=== PATIENT | female | born 1935 | race Caucasian/White ===

== ENCOUNTER 2017-01-20 09:26 | Day surgery (SDC) | payer MEDICARE, OTHER ==
[~2017-01-20 09:26] MED LIST: Lactated Ringers 1,000 ML IV SCH
[2017-01-20] MEDS ORDERED: fentaNYL 100 MCG/2 ML SDV ONE (11:31)
[2017-01-20] MEDS ORDERED: Propofol 200 MG/20 ML SDV ONE (11:31)
--- NOTE | 2017-01-20 14:42 | OR ---
PREOPERATIVE DIAGNOSIS: History of polyps. POSTOPERATIVE DIAGNOSIS: Sigmoid diverticulosis. Otherwise normal exam. PROCEDURE PROPOSED: Total flexible colonoscopy. PROCEDURE DONE: Total flexible colonoscopy. INDICATION: This is a 81-year-old female who comes in for recommended colonoscopy due to history of polyps. She has been having evaluations about every 5 years. She denies any symptomatology. TECHNIQUE: The patient was brought to the endoscopy suite, placed in left lateral decubitus position. She was sedated with propofol per [employer]ED PROJECT ENGINEER. The flexible video colonoscope was then passed transanally and under visualization advanced to the cecum. Examination revealed a normal ascending, transverse, and descending colon. The sigmoid colon revealed moderate diverticulosis and the rectal mucosa was normal. There are no polyps, colitis, or other abnormalities. The scope was then withdrawn. The patient tolerated the procedure well. IMPRESSION: 1. Sigmoid diverticulosis. Otherwise normal exam. 2. History of prior polyps. PLAN: It at her age, now we feel that she needs no future examinations. SCM: 01/20/2017 12:43:24 MODL: 01/20/2017 14:31:50 /[id number]
[2017-01-20 14:45] VITALS: BP 108/58
== END 2017-01-20 14:00 | disposition home or self-care (01) ==
LOC: VM.SDS 09:26
PROVIDERS: ATTEND Surgery
DX: Z12.11 Encounter for screening for malignant neoplasm of colon (principal); Z86.010 Personal history of colon polyps; K57.30 Diverticulosis of large intestine without perforation or abscess without bleeding; Z79.82 Long term (current) use of aspirin; Z79.899 Other long term (current) drug therapy; Z88.0 Allergy status to penicillin; Z88.1 Allergy status to other antibiotic agents; E78.5 Hyperlipidemia, unspecified; F41.9 Anxiety disorder, unspecified; J45.20 Mild intermittent asthma, uncomplicated; F32.9 Major depressive disorder, single episode, unspecified; I25.10 Atherosclerotic heart disease of native coronary artery without angina pectoris; Z90.710 Acquired absence of both cervix and uterus; Z96.653 Presence of artificial knee joint, bilateral; Z98.890 Other specified postprocedural states
CPT/HCPCS: G0105; J2704; J3010; J7120; 00810

== ENCOUNTER 2018-03-06 13:39 | Emergency (ER) | payer MEDICARE, OTHER ==
[2018-03-06 13:49] VITALS: BP 102/62
[2018-03-06] MEDS ORDERED: Lidocaine 1% with EPINEPHrine 1:100,000 20 ML MDV INFILT ONE (13:50)
--- NOTE | 2018-03-06 13:59 | EDM.PDOC ---
ED HPI GENERAL MEDICAL PROBLEM - General Chief Complaint: Lower Extremity Injury/Pain Stated Complaint: ER Time Seen by Provider: 03/06/18 13:40 Source of Information: Reports: Patient History Limitations: Reports: No Limitations - History of Present Illness INITIAL COMMENTS - FREE TEXT/NARRATIVE: Pt. presents to ER with complaints of bleeding from a vericose vein. Pt. was doing dishes and a small knife fell, causing a small puncture wound to her R lower anterior leg. She states that she immediately began experiencing heavy bleeding from the area. EMS was summoned. A pressure dressing was applied to the area and pt. was transported to the ER. Onset: Today Location: Reports: Lower Extremity, Right - Related Data Allergies Allergy/AdvReac Type Severity Reaction Status Date / Time methotrexate Allergy Nausea and Verified 03/06/18 13:50 Vomiting Penicillins Allergy Rash Verified 03/06/18 13:50 Home Meds: Home Meds Acetaminophen [Tylenol Extra Strength] 500 - 1,000 mg PO Q4H PRN 01/02/17 [ History] Albuterol [IJD: Albuterol HFA] 2 puff PO Q4H PRN 01/02/17 [History] Aspirin [Halfprin] 81 mg PO DAILY 01/02/17 [History] Clobetasol Propionate [Temovate] 1 applic TOP BID 01/02/17 [History] ClonazePAM [KlonoPIN] 0.5 mg PO BEDTIME 01/02/17 [History] DULoxetine [Cymbalta] 1 cap PO BID 01/02/17 [History] Dextran/Hypromellose/Glycerin [Genteal Tears 0.1%-0.2%-0.3%] 1 drop EYEBOTH ASDIRECTED 01/02/17 [History] Estrogens, Conjugated [Premarin Vaginal Crm] 1 gram VAG Q3D 01/02/17 [History] Gabapentin [Neurontin] 1 cap PO TID 01/02/17 [History] Levothyroxine 25 mcg PO QAM 01/02/17 [History] Pravastatin Sodium 1 tab PO DAILY 01/02/17 [History] Propylene Glycol/Peg 400 [Systane 0.3-0.4% Eye Drops] 1 drop EYERT Q4H 01/02/17 [History] Psyllium [Metamucil] 1 cap PO DAILY PRN 01/02/17 [History] Celecoxib [CeleBREX] 100 mg PO DAILY 03/06/18 [History] Fluticasone Propionate [Flovent HFA] 1 puff INH BID 03/06/18 [History] Magnesium Oxide 400 mg PO DAILY 03/06/18 [History] Past Medical History HEENT History: Reports: None Cardiovascular History: Reports: CAD, High Cholesterol, Other (See Below) Other Cardiovascular History: varicose veins Respiratory History: Reports: Asthma Gastrointestinal History: Reports: Colon Polyp, Diverticulosis, Other (See Below ) Other Gastrointestinal History: esophagitis Genitourinary History: Reports: None Musculoskeletal History: Reports: Other (See Below) Other Musculoskeletal History: capsulitis of foot, metatarsalgia, clawtow, ffot joint hypermobility, pesplanovalgus Neurological History: Reports: Neuropathy, Peripheral, Other (See Below) Other Neuro History: herpetic neuralgia Psychiatric History: Reports: Anxiety, Depression, Other (See Below) Other Psychiatric History: insomnia Endocrine/Metabolic History: Reports: Hypothyroidism, Osteopenia Hematologic History: Reports: None Immunologic History: Reports: None Oncologic (Cancer) History: Reports: None Dermatologic History: Reports: Psoriasis - Past Surgical History Head Surgeries/Procedures: Reports: None HEENT Surgical History: Reports: Cataract Surgery, Tonsillectomy Cardiovascular Surgical History: Reports: None GI Surgical History: Reports: Appendectomy, Cholecystectomy, Colonoscopy Female Surgical History: Reports: Hysterectomy Musculoskeletal Surgical History: Reports: Knee Replacement, Other (See Below) Other Musculoskeletal Surgeries/Procedures:: thumb sx Review of Systems - Review of Systems Review Of Systems: ROS reveals no pertinent complaints other than HPI. Musculoskeletal: Reports: Other ED EXAM, GENERAL - Physical Exam Exam: See Below General Appearance: Alert, WD/WN, No Apparent Distress Extremities: Normal Inspection, Normal Range of Motion, Non-Tender, No Pedal Edema, Normal Capillary Refill, Other (small sub centimeter puncture wound noted to R anterior lower leg, briskly bleeding when no pressure is applied.) ED TRAUMA EXTREMITY PROCEDURES - Laceration/Wound Repair Right Anterior Leg Lac/Wound Length In cm: 0.5 Appearance: Superficial Distal NVT: Neuro & Vascular Intact Anesthetic Type: Local Local Anesthesia - Lidocaine (Xylocaine): 1% with EPI Local Anesthetic Volume: 3cc Skin Prep: Chlorhexidine (Hibiciens), Saline Exploration/Debridement/Repair: Wound Explored Closed With: Sutures Suture Size: other (5-0) Suture Type: Nylon Progress/Comments: Very superficial laceration/puncture, briskly bleeding. The area was injected with 1% lidocaine with epinephrine, for anesthetic as well as for vasoconstriction. Bleeding continued but slowed after injection. a single 5-0 nylon suture was placed. Excellent hemostasis was achieved. Surgicel was placed over the area in the event that the laceration begins bleeding again. 4x4s were placed over this and secured with coban. Course - Vital Signs Last Recorded V/S: Last Vital Signs Temp 36.3 C 03/06/18 13:40 Pulse 82 03/06/18 13:40 Resp 18 03/06/18 13:40 BP 102/62 03/06/18 13:40 Pulse Ox 95 03/06/18 13:40 - Orders/Labs/Meds Meds: Medications Discontinued Medications Generic Name Dose Route Start Last Admin Trade Name Kamleshq PRN Reason Stop Dose Admin Lidocaine/Epinephrine 20 ml 03/06/18 13:50 03/06/18 14:01 Xylocaine 1% With Epinephrine 1:100,000 INFILT 03/06/18 13:51 20 ml ONETIME ONE Administration Departure - Departure Time of Disposition: 14:25 Disposition: Home, Self-Care 01 Condition: Good Clinical Impression: Laceration, Bleeding from varicose veins of right lower extremity - Discharge Information Instructions: Bleeding Varicose Veins Referrals: Irasema Matute DO [Primary Care Provider] - Forms: ED Department Discharge Additional Instructions: Keep dressing on for 48 hours. Suture out in 10 days. Return to ER if continued bleeding from the area.
== END 2018-03-06 14:25 | disposition home or self-care (01) ==
LOC: VM.ED 13:39
DX: S81.811A Laceration without foreign body, right lower leg, initial encounter (principal); I83.91 Asymptomatic varicose veins of right lower extremity; E03.9 Hypothyroidism, unspecified; Z88.0 Allergy status to penicillin; Z88.8 Allergy status to other drugs, medicaments and biological substances; Z79.82 Long term (current) use of aspirin; Z79.899 Other long term (current) drug therapy; W26.0XXA Contact with knife, initial encounter
CPT/HCPCS: 12001; 99283

== ENCOUNTER 2020-08-02 12:56 | Day surgery (SDC) | payer MEDICARE, OTHER ==
[2020-08-02] MEDS ORDERED: Propofol 200 MG/20 ML SDV ONE ×2 (13:10→15:08)
[2020-08-02 16:02] VITALS: BP 139/68; PULSE 63
--- NOTE | 2020-08-03 11:15 | OR ---
DATE OF SURGERY: 08/02/2020. REFERRING PROVIDER: Irasema Matute DO PRE-OPERATIVE DIAGNOSES: Chronic diarrhea for past several months. This was accompanied with stool urgency and some stool incontinence. The patient reports 5 to 10 loose stools per day along with stomach cramps. She denies any bloody or dark black-colored stools. No nausea or vomiting. Symptoms not improved with Imodium or Bentyl. POST-OPERATIVE DIAGNOSES: 1. Two small polyps removed using cold forceps. a. 2 mm polyp at 120 cm. b. 4 mm polyp at 60 cm. 2. Moderate diverticulosis, diffuse. 3. Otherwise, normal-appearing colon and normal-appearing distal ileum. Random biopsies taken from each area. PROCEDURE: Colonoscopy with polypectomy x2 using cold forceps. Random biopsies also taken from distal ilium and randomly throughout the colon in each segment. SURGEON: Grabiel Castañeda M.D. ANESTHESIA: Monitored anesthesia care. BOWEL PREP: Good. Julieth is an 85-year-old female who was brought to the endoscopy suite after discussing risks and benefits of the procedure. Informed consent was obtained for conscious sedation and colonoscopy with or without biopsy and/or polypectomy. We also discussed possibility of missed lesions. Pre-procedure exam was unremarkable. IV, oxygen, and monitors were placed. The patient was placed in the left lateral decubitus position. Sedation was administered and a digital rectal exam was performed and unremarkable. Colonoscope was passed into the rectum and slowly advanced all the way to the cecum. Cecum was viewed and photographed. Ileocecal valve was intubated and distal ileum was normal in appearance. Cold biopsy x2 bites taken randomly. The colonoscope was slowly withdrawn and the mucosa was closed observed in a direct circumferential manner. The ascending colon revealed 2 mm polyp at 120 cm from the anal verge. This was removed using cold forceps. The transverse colon was unremarkable. The descending colon revealed 4 mm polyp at 60 cm, removed using cold forceps. The sigmoid colon was unremarkable. The colon was remarkable for some moderate diffuse diverticulosis in each segment. Retroflexion was performed and rectal mucosa was unremarkable. Scope was removed. The patient tolerated the procedure well. The patient was monitored until that baseline status. Discharge instructions were reviewed and the patient was discharged in good condition. COMPLICATIONS: None. TOTAL TIME: 25 minutes. ESTIMATED BLOOD LOSS: 1 to 2 mL. RECOMMENDATIONS/FOLLOW-UP: We will await results of path report to determine ideal followup interval. We will have the patient hold her low-dose aspirin for 3 days to limit any chance of bleeding. I would like to kindly thank Irasema Matute for this referral. DMB: 08/02/2020 15:46:19 MODL: 08/02/2020 17:49:17 /[id number]
== END 2020-08-02 16:30 | disposition home or self-care (01) ==
LOC: VM.SDS 12:56
PROVIDERS: ATTEND Family Medicine
DX: D12.6 Benign neoplasm of colon, unspecified (principal); K63.89 Other specified diseases of intestine; K57.30 Diverticulosis of large intestine without perforation or abscess without bleeding; K52.9 Noninfective gastroenteritis and colitis, unspecified; F41.9 Anxiety disorder, unspecified; E78.5 Hyperlipidemia, unspecified; J45.20 Mild intermittent asthma, uncomplicated; Z01.812 Encounter for preprocedural laboratory examination; Z20.828 Contact with and (suspected) exposure to other viral communicable diseases; Z79.899 Other long term (current) drug therapy; Z88.0 Allergy status to penicillin; Z88.1 Allergy status to other antibiotic agents; Z88.8 Allergy status to other drugs, medicaments and biological substances
CPT/HCPCS: 00811; 45380; J2704; J7120; U0002; 88305

== ENCOUNTER 2022-06-02 13:19 | Emergency (ER) | payer MEDICARE, OTHER ==
[2022-06-02 14:07] VITALS: BP 108/73; PULSE 73
[2022-06-02 14:24] LABS: CHLORIDE,CL 101 mmol/L (98-107); SODIUM,NA 137 mmol/L (136-145)
[2022-06-02 14:25] LABS: ANION GAP 12.9 mmol/L (5-15); ESTIMATED GFR 73 mL/min (>=60)
== END 2022-06-02 15:02 | disposition home or self-care (01) ==
LOC: VM.ED 13:19
DX: G89.29 Other chronic pain (principal); M54.50 Low back pain, unspecified; R53.83 Other fatigue; I25.10 Atherosclerotic heart disease of native coronary artery without angina pectoris; E78.00 Pure hypercholesterolemia, unspecified; J45.909 Unspecified asthma, uncomplicated; M19.90 Unspecified osteoarthritis, unspecified site; E03.9 Hypothyroidism, unspecified; Z88.0 Allergy status to penicillin; Z88.1 Allergy status to other antibiotic agents; Z88.8 Allergy status to other drugs, medicaments and biological substances; Z79.82 Long term (current) use of aspirin; Z79.899 Other long term (current) drug therapy
CPT/HCPCS: 36415; 80048; 85025; 99283; 99284

== ENCOUNTER 2022-12-01 11:44 | Emergency (ER) | payer MEDICARE, OTHER ==
[2022-12-01 11:51] VITALS: BP 132/78; PULSE 79
== END 2022-12-01 13:09 | disposition home or self-care (01) ==
LOC: VM.ED 11:44
DX: S06.0X0A Concussion without loss of consciousness, initial encounter (principal); S00.03XA Contusion of scalp, initial encounter; M54.50 Low back pain, unspecified; I25.10 Atherosclerotic heart disease of native coronary artery without angina pectoris; E78.00 Pure hypercholesterolemia, unspecified; J45.909 Unspecified asthma, uncomplicated; M19.90 Unspecified osteoarthritis, unspecified site; E03.9 Hypothyroidism, unspecified; Z88.0 Allergy status to penicillin; Z88.1 Allergy status to other antibiotic agents; Z88.8 Allergy status to other drugs, medicaments and biological substances; Z79.82 Long term (current) use of aspirin; Z79.899 Other long term (current) drug therapy; W18.30XA Fall on same level, unspecified, initial encounter; Y92.009 Unspecified place in unspecified non-institutional (private) residence as the place of occurrence of the external cause
CPT/HCPCS: 70450; 72100; 99284

== ENCOUNTER 2023-04-18 10:10 | Emergency (ER) | payer MEDICARE, OTHER ==
[2023-04-18] MEDS ORDERED: methylPREDNISolone Sodium Succinate 125 MG/2 ML SDV IVPUSH ONE (10:36)
[2023-04-18] MEDS ORDERED: ceFAZolin 1 GM Vial IVPUSH ONE (10:36)
[2023-04-18 12:17] VITALS: BP 118/60; PULSE 70
== END 2023-04-18 11:05 | disposition home or self-care (01) ==
LOC: VM.ED 10:10
DX: L03.114 Cellulitis of left upper limb (principal); E78.00 Pure hypercholesterolemia, unspecified; I25.10 Atherosclerotic heart disease of native coronary artery without angina pectoris; J45.909 Unspecified asthma, uncomplicated; E03.9 Hypothyroidism, unspecified; Z79.899 Other long term (current) drug therapy; Z79.82 Long term (current) use of aspirin; Z88.0 Allergy status to penicillin; Z88.1 Allergy status to other antibiotic agents; Z88.8 Allergy status to other drugs, medicaments and biological substances
CPT/HCPCS: 96374; 96375; 99283; J0690; J2930

== ENCOUNTER 2023-12-22 18:21 | Emergency (ER) | payer MEDICARE, OTHER ==
[2023-12-22] MEDS: Sodium Chloride 0.9% 1,000 ML IV ONE (18:59)
[2023-12-22 19:00] LABS: BASOPHILS PERCENT AUTO 0.6 % (0.2-1.2); EOSINOPHILS ABSOLUTE AUTO 0.1 x10^3/uL (0.0-0.5); EOSINOPHILS PERCENT AUTO 1.9 % (0.0-4.0); HEMATOCRIT 41.3 % (33.0-47.0); HEMOGLOBIN 14.5 g/dL (12.0-16.0); IMMATURE GRAN ABSOLUTE AUTO 0.01 x10^3/uL (0.00-0.07); LYMPHOCYTES ABSOLUTE AUTO 1.4 x10^3/uL (1.0-4.8); LYMPHOCYTES PERCENT AUTO 27.8 % (25.0-50.0); MEAN CORPUSCULAR HEMOGLOBIN 34.4 pg (26.0-32.0); MEAN CORPUSCULAR HGB CONC 35.1 g/dL (32.0-36.0); MEAN CORPUSCULAR VOLUME 98.1 fL (78.0-93.0); MONOCYTES ABSOLUTE AUTO 0.7 x10^3/uL (0.0-0.8); MONOCYTES PERCENT AUTO 13.5 % (2.0-11.0); NEUTROPHILS ABSOLUTE AUTO 2.9 x10^3/uL (1.8-7.7); PLATELET COUNT,PLT 233 x10^3/uL (130-400); RED BLOOD CELL COUNT 4.21 x10^6/uL (4.00-5.50); WHITE BLOOD CELL COUNT,WBC 5.2 x10^3/uL (4.0-10.0)
[2023-12-22 19:25] LABS: A/G RATIO 1.08; ALANINE AMINOTRANSFERASE,ALT 24 U/L (14-59); ALKALINE PHOSPHATASE 121 U/L (46-116); ANION GAP 16.1 mmol/L (5-15); ASPARTATE AMNIOTRANSFERASE,AST 22 U/L (15-37); BILIRUBIN TOTAL 0.5 mg/dL (0.2-1.0); BLOOD UREA NITROGEN,BUN 16 mg/dL (7-18); CALCIUM 9.5 mg/dL (8.5-10.1); CARBON DIOXIDE,CO2 29 mmol/L (21-32); CHLORIDE,CL 101 mmol/L (98-107); CREATININE 0.7 mg/dL (0.55-1.02); ESTIMATED GFR 84 mL/min (>=60); GLUCOSE RANDOM 107 mg/dL (70-99); POTASSIUM,K 4.1 mmol/L (3.5-5.1); PROTEIN TOTAL,TP 7.7 g/dL (6.4-8.2); SODIUM,NA 142 mmol/L (136-145)
[2023-12-22] MEDS: Iopamidol 612 MG/ML 100 ML Bottle IVPUSH ONE (20:25)
[2023-12-22 20:57] LABS: APPEARANCE,URINE CLEAR (CLEAR); BILIRUBIN,URINE NEGATIVE (NEGATIVE); COLOR,URINE YELLOW (YELLOW); GLUCOSE,URINE NEGATIVE (NEGATIVE); KETONES,URINE NEGATIVE (NEGATIVE); LEUKOCYTE ESTERASE,URINE NEGATIVE (NEGATIVE); NITRITE,URINE NEGATIVE (NEGATIVE); OCCULT BLOOD,URINE NEGATIVE (NEGATIVE); PROTEIN,URINE NEGATIVE (NEGATIVE); UROBILINOGEN,URINE 0.2 EU/dL (0.2)
[2023-12-22 22:02] VITALS: BP 131/67; PULSE 70
== END 2023-12-22 22:02 | disposition home or self-care (01) ==
LOC: VM.ED 18:21
DX: R10.84 Generalized abdominal pain (principal); I25.10 Atherosclerotic heart disease of native coronary artery without angina pectoris; E78.00 Pure hypercholesterolemia, unspecified; E03.9 Hypothyroidism, unspecified; Z88.0 Allergy status to penicillin; Z88.1 Allergy status to other antibiotic agents; Z79.899 Other long term (current) drug therapy; Z79.82 Long term (current) use of aspirin
CPT/HCPCS: 74177; 80053; 81003; 83605; 85025; 96360; 96361; 99284; J7030; Q9967

== ENCOUNTER 2024-06-08 09:18 | Inpatient (IN) | payer MEDICARE, OTHER ==
[2024-06-08] MEDS ORDERED: Ondansetron 4 MG Tab.DIS PO PRN (10:51)
[2024-06-08] MEDS ORDERED: Acetaminophen 500 MG Tab PO PRN (11:14)
[2024-06-08] MEDS ORDERED: Albuterol HFA 18 Gm Inhaler INH PRN (11:14)
[2024-06-08] MEDS ORDERED: Dicyclomine 10 MG Cap PO PRN (11:14)
[2024-06-08] MEDS ORDERED: Hydrocortisone 2.5% Crm 30 GM Tube TOP PRN (11:14)
[2024-06-08] MEDS ORDERED: Polyethylene Glycol 3350 Powder 17 GM Packet PO PRN (11:14)
[2024-06-08] MEDS ORDERED: BETAMETHASONE DIPROPIONATE TOP PRN (11:14)
[2024-06-08] MEDS ORDERED: KETOCONAZOLE TOP SCH (11:15)
[2024-06-08] MEDS: Cyclobenzaprine 10 MG Tab PO SCH (12:33)
[2024-06-08] MEDS: Gabapentin 300 MG Cap PO SCH (12:33)
[2024-06-08] MEDS: oxyCODONE 5 MG Tab PO PRN (12:34)
[2024-06-08] MEDS: Ibuprofen 200 MG Tab PO SCH (14:54)
[2024-06-08] MEDS: buPROPion 150 MG Tab.ER PO SCH (20:13)
[2024-06-08] MEDS: DULoxetine 20 MG Cap PO SCH (20:18)
[2024-06-08] MEDS: Lidocaine 4% 1 each Patch TOP SCH (20:19)
[2024-06-08] MEDS: Enoxaparin 40 MG/0.4 ML Syringe SUBCUT SCH (20:19)
[2024-06-08] MEDS: Clobetasol 0.05% Crm 30 GM Tube TOP SCH (20:20)
[2024-06-08] MEDS: CYCLOSPORINE 0.05% EYEBOTH SCH (20:51)
[2024-06-08] MEDS ORDERED: CYCLOSPORINE EYEBOTH SCH (21:00)
[2024-06-08] MEDS: ClonazePAM 0.5 MG Tab PO PRN (23:30)
[2024-06-09] MEDS: Sennosides/Docusate Sodium 50-8.6 MG Tab PO SCH (08:50)
[2024-06-09] MEDS: Levothyroxine 25 MCG Tab PO SCH (08:50)
[2024-06-09] MEDS: Aspirin 81 MG Tab.EC PO SCH (08:50)
[2024-06-09] MEDS: REMOVE LIDOCAINE TRDERM SCH (08:56)
[2024-06-10] MEDS: Hypromellose 0.3% Ophth Soln 15 ML Bottle EYEBOTH PRN (08:58)
[2024-06-10 11:00] LABS: BASOPHILS PERCENT AUTO 0.7 % (0.2-1.2); EOSINOPHILS ABSOLUTE AUTO 0.2 x10^3/uL (0.0-0.5); EOSINOPHILS PERCENT AUTO 3.6 % (0.0-4.0); HEMATOCRIT 38.7 % (33.0-47.0); HEMOGLOBIN 13.4 g/dL (12.0-16.0); IMMATURE GRAN ABSOLUTE AUTO 0.02 x10^3/uL (0.00-0.07); LYMPHOCYTES ABSOLUTE AUTO 0.8 x10^3/uL (1.0-4.8); MEAN CORPUSCULAR HEMOGLOBIN 35.7 pg (26.0-32.0); MEAN CORPUSCULAR HGB CONC 34.6 g/dL (32.0-36.0); MEAN CORPUSCULAR VOLUME 103.2 fL (78.0-93.0); MONOCYTES ABSOLUTE AUTO 0.7 x10^3/uL (0.0-0.8); MONOCYTES PERCENT AUTO 15.6 % (2.0-11.0); NEUTROPHILS ABSOLUTE AUTO 2.8 x10^3/uL (1.8-7.7); NEUTROPHILS PERCENT AUTO 61.7 % (50.0-80.0); PLATELET COUNT,PLT 204 x10^3/uL (130-400); RED BLOOD CELL COUNT 3.75 x10^6/uL (4.00-5.50); WHITE BLOOD CELL COUNT,WBC 4.5 x10^3/uL (4.0-10.0)
[2024-06-10 11:19] LABS: A/G RATIO 0.84; ALBUMIN 3.2 g/dL (3.4-5.0); ANION GAP 13.8 mmol/L (5-15); BILIRUBIN TOTAL 0.7 mg/dL (0.2-1.0); CALCIUM 9.1 mg/dL (8.5-10.1); CREATININE 0.6 mg/dL (0.55-1.02); EST CRCL DRUG DOSING (CG) 61.84 mL/min; POTASSIUM,K 3.8 mmol/L (3.5-5.1)
[2024-06-10] MEDS: oxyCODONE 5 MG Tab PO PRN (13:44)
[2024-06-10] MEDS: Acetaminophen 325 MG Tab PO SCH (14:02)
[2024-06-10] MEDS: Polyethylene Glycol 3350 Powder 17 GM Packet PO SCH (21:20)
[2024-06-12 08:20] LABS: A/G RATIO 0.83; BILIRUBIN TOTAL 0.6 mg/dL (0.2-1.0); CALCIUM 8.9 mg/dL (8.5-10.1); CREATININE 0.6 mg/dL (0.55-1.02); EST CRCL DRUG DOSING (CG) 61.84 mL/min; POTASSIUM,K 4.8 mmol/L (3.5-5.1); PROTEIN TOTAL,TP 6.6 g/dL (6.4-8.2)
[2024-06-12 08:21] LABS: ANION GAP 10.8 mmol/L (5-15)
[2024-06-15] MEDS: Ibuprofen 200 MG Tab PO PRN (15:14)
[2024-06-16 11:37] VITALS: BP 110/57; PULSE 88
== END 2024-06-16 11:10 | disposition home health service (06) | DRG 561 ==
LOC: EDBD 10:33 → VM.MS 10:33
PROVIDERS: ADMIT Family Medicine; ATTEND Family Medicine
DX: S22.43XD Multiple fractures of ribs, bilateral, subsequent encounter for fracture with routine healing (principal); S22.20XD Unspecified fracture of sternum, subsequent encounter for fracture with routine healing; Z66 Do not resuscitate; I25.10 Atherosclerotic heart disease of native coronary artery without angina pectoris; E03.9 Hypothyroidism, unspecified; M19.90 Unspecified osteoarthritis, unspecified site; G89.29 Other chronic pain; M54.9 Dorsalgia, unspecified; G62.9 Polyneuropathy, unspecified; F41.9 Anxiety disorder, unspecified; F32.A Depression, unspecified; E78.00 Pure hypercholesterolemia, unspecified; Z88.0 Allergy status to penicillin; Z88.1 Allergy status to other antibiotic agents; Z88.8 Allergy status to other drugs, medicaments and biological substances; Z79.82 Long term (current) use of aspirin; Z79.899 Other long term (current) drug therapy; Z79.890 Hormone replacement therapy; Z90.49 Acquired absence of other specified parts of digestive tract; Z98.49 Cataract extraction status, unspecified eye; Z90.89 Acquired absence of other organs; Z86.0100 Personal history of colon polyps, unspecified; Z96.659 Presence of unspecified artificial knee joint; Z90.710 Acquired absence of both cervix and uterus; X58.XXXD Exposure to other specified factors, subsequent encounter
CPT/HCPCS: 36415; 80053; 85025; 94760; 97110-GP; 97116-GP; 97161-GP; 97165-GO; 97530-GO; 97535-GO; A9270-GY; J1650

== ENCOUNTER 2025-04-01 15:02 | Emergency (ER) | payer MEDICARE, OTHER ==
[2025-04-01 15:14] VITALS: BP 105/55; PULSE 71
== END 2025-04-01 17:52 | disposition home or self-care (01) ==
LOC: VM.ED 15:02
DX: S06.0X0A Concussion without loss of consciousness, initial encounter (principal); I25.10 Atherosclerotic heart disease of native coronary artery without angina pectoris; E78.00 Pure hypercholesterolemia, unspecified; E03.9 Hypothyroidism, unspecified; Z88.0 Allergy status to penicillin; Z88.8 Allergy status to other drugs, medicaments and biological substances; Z79.82 Long term (current) use of aspirin; Z79.899 Other long term (current) drug therapy; Z90.49 Acquired absence of other specified parts of digestive tract; W22.8XXA Striking against or struck by other objects, initial encounter; Y93.89 Activity, other specified
CPT/HCPCS: 70450; 99284

== ENCOUNTER 2025-04-16 08:44 | Emergency (ER) | payer MEDICARE, OTHER ==
[2025-04-16 09:12] VITALS: BP 133/62; PULSE 75
== END 2025-04-16 09:18 | disposition home or self-care (01) ==
LOC: VM.ED 08:44
DX: M79.89 Other specified soft tissue disorders (principal); E03.9 Hypothyroidism, unspecified; Z88.0 Allergy status to penicillin; Z88.8 Allergy status to other drugs, medicaments and biological substances; Z79.899 Other long term (current) drug therapy; Z79.82 Long term (current) use of aspirin; Z79.890 Hormone replacement therapy; Z90.49 Acquired absence of other specified parts of digestive tract; Z90.710 Acquired absence of both cervix and uterus
CPT/HCPCS: 99283

== ENCOUNTER 2025-04-17 08:29 | Emergency (ER) | payer MEDICARE, OTHER ==
[2025-04-17 08:48] VITALS: BP 146/73; PULSE 83
[2025-04-17] MEDS ORDERED: Sodium Chloride 0.9% 10 ML Syringe FLUSH PRN (09:17)
[2025-04-17] MEDS: Take Home: Cephalexin 500 MG Cap, 6 Cap Pack PO ONE (09:21)
== END 2025-04-17 09:45 | disposition home or self-care (01) ==
LOC: VM.ED 08:29
DX: L03.115 Cellulitis of right lower limb (principal); I25.10 Atherosclerotic heart disease of native coronary artery without angina pectoris; E78.00 Pure hypercholesterolemia, unspecified; J45.909 Unspecified asthma, uncomplicated; E03.9 Hypothyroidism, unspecified; Z90.49 Acquired absence of other specified parts of digestive tract; Z88.0 Allergy status to penicillin; Z88.8 Allergy status to other drugs, medicaments and biological substances; Z79.899 Other long term (current) drug therapy; Z79.82 Long term (current) use of aspirin; Z79.890 Hormone replacement therapy
CPT/HCPCS: 96374; 99283; 99284; A9270; J0696

== ENCOUNTER 2025-05-29 13:54 | Emergency (ER) | payer MEDICARE, OTHER ==
[2025-05-29 14:52] LABS: BASOPHILS ABSOLUTE AUTO 0.0 x10^3/uL (0.0-0.2); BASOPHILS PERCENT AUTO 1.0 % (0.2-1.2); EOSINOPHILS ABSOLUTE AUTO 0.2 x10^3/uL (0.0-0.5); EOSINOPHILS PERCENT AUTO 4.8 % (0.0-4.0); IMMATURE GRAN ABSOLUTE AUTO 0.01 x10^3/uL (0.00-0.07); IMMATURE GRAN PERCENT AUTO 0.20 % (0.00-0.43); LYMPHOCYTES ABSOLUTE AUTO 1.2 x10^3/uL (1.0-4.8); LYMPHOCYTES PERCENT AUTO 29.3 % (25.0-50.0); MONOCYTES ABSOLUTE AUTO 0.6 x10^3/uL (0.0-0.8); MONOCYTES PERCENT AUTO 14.9 % (2.0-11.0); NEUTROPHILS ABSOLUTE AUTO 2.1 x10^3/uL (1.8-7.7); NEUTROPHILS PERCENT AUTO 49.8 % (50.0-80.0); PLATELET COUNT,PLT 234 x10^3/uL (130-400); RED BLOOD CELL COUNT 3.97 x10^6/uL (4.00-5.50); WHITE BLOOD CELL COUNT,WBC 4.2 x10^3/uL (4.0-10.0)
[2025-05-29 15:18] LABS: A/G RATIO 0.94; ALANINE AMINOTRANSFERASE,ALT 20 U/L (14-59); ASPARTATE AMNIOTRANSFERASE,AST 19 U/L (15-37); BILIRUBIN TOTAL 0.3 mg/dL (0.2-1.0); BLOOD UREA NITROGEN,BUN 18 mg/dL (7-18); CARBON DIOXIDE,CO2 26 mmol/L (21-32); CHLORIDE,CL 105 mmol/L (98-107); CREATININE 0.7 mg/dL (0.55-1.02); GLUCOSE RANDOM 110 mg/dL (70-99); POTASSIUM,K 3.9 mmol/L (3.5-5.1); PROTEIN TOTAL,TP 6.8 g/dL (6.4-8.2); SODIUM,NA 138 mmol/L (136-145)
[2025-05-29 15:22] LABS: ESTIMATED GFR 84 mL/min (>=60)
[2025-05-29 18:29] VITALS: BP 130/69; PULSE 73
== END 2025-05-29 16:02 | disposition home or self-care (01) ==
LOC: VM.ED 13:54
DX: R42 Dizziness and giddiness (principal); I25.10 Atherosclerotic heart disease of native coronary artery without angina pectoris; E03.9 Hypothyroidism, unspecified; M19.90 Unspecified osteoarthritis, unspecified site; Z79.899 Other long term (current) drug therapy; Z79.890 Hormone replacement therapy; Z88.8 Allergy status to other drugs, medicaments and biological substances; Z88.0 Allergy status to penicillin; Z90.49 Acquired absence of other specified parts of digestive tract; Z90.710 Acquired absence of both cervix and uterus
CPT/HCPCS: 36415; 70450; 80053; 83735; 85025; 99284